=== PATIENT | male | born 1985 | race Caucasian/White ===

== ENCOUNTER 2017-05-18 15:43 | Emergency (ER) | payer SELFPAY ==
[~2017-05-18] VITALS: Ht 185.4 cm; Wt 82.0 kg
[2017-05-18 15:45] VITALS: BP 133/76; PULSE 70; RESP 16; TEMP 98.5; O2SAT 98
--- NOTE | 2017-05-18 15:49 | PD ---
Physical Exam Date Seen by Provider: May 18, 2017 Time Seen by Provider: 15:47 Narrative 31 yo male here of voluntary psych eval. here for evaluation of depression and anxiety. No suicidal. Been under a lot of stress. Not sleeping. Mind racing. No drugs. Vitals are stable in triage. Awaiting bed placement. Data Data Last Documented VS Vital Signs Date Time Temp Pulse Resp B/P Pulse Ox O2 Delivery O2 Flow Rate FiO2 05/18/17 15:45 98.5 70 16 133/76 98 MDM Medical Record Reviewed: Yes Supervised Visit with DERICK: Dave Stallworth May 18, 2017 15:49
[2017-05-18 16:08] VITALS: BP 120/84; PULSE 76; RESP 18; O2SAT 100
--- NOTE | 2017-05-18 16:47 | PD ---
HPI Chief Complaint: Psychiatric Symptoms Time Seen by Provider: 16:25 Travel History International Travel<30 days: No Contact w/Intl Traveler<30days: No Traveled to known affect area: No History of Present Illness HPI 31-year-old male presents voluntarily requesting psychiatric evaluation. For the past several months the patient has been having thoughts of depression, anxiety, anhedonia, insomnia. Symptoms have been building up for some time. Today he was quite agitated at home, slamming doors, generally feeling angry and family members advised that he come here for evaluation. He denies any suicidal or homicidal ideation, alcohol abuse, auditory or visual hallucination. He endorses occasional marijuana use. No other complaints. [facility] Social History Tobacco Use: Yes Substance Use: Yes Allergies-Medications (Allergen,Severity, Reaction): Coded Allergies: No Known Allergies (Unverified , 05/18/17) Reported Meds & Prescriptions Reported Meds & Active Scripts Active No Active Prescriptions or Reported Medications Review of Systems Except as stated in HPI: all other systems reviewed are Neg Physical Exam Narrative GENERAL: Well-developed well-nourished male in no acute distress SKIN: Warm and dry. HEAD: Atraumatic. Normocephalic. EYES: Pupils equal and round. No scleral icterus. No injection or drainage. ENT: No nasal bleeding or discharge. Mucous membranes pink and moist. NECK: Trachea midline. No JVD. CARDIOVASCULAR: Regular rate and rhythm. No murmur appreciated. RESPIRATORY: No accessory muscle use. Clear to auscultation. Breath sounds equal bilaterally. GASTROINTESTINAL: Abdomen soft, non-tender, nondistended. Hepatic and splenic margins not palpable. MUSCULOSKELETAL: No obvious deformities. No clubbing. No cyanosis. No edema. NEUROLOGICAL: Awake and alert. No obvious cranial nerve deficits. Motor grossly within normal limits. Normal speech. PSYCHIATRIC: Appropriate mood and affect; insight and judgment normal. Data Data Last Documented VS Vital Signs Date Time Temp Pulse Resp B/P Pulse Ox O2 Delivery O2 Flow Rate FiO2 05/18/17 16:08 76 18 120/84 100 Room Air 05/18/17 15:45 98.5 Orders Complete Blood Count With Diff (05/18/17 16:03) Comprehensive Metabolic Panel (05/18/17 16:03) Psych Screen (05/18/17 16:03) Drug Screen, Random Urine (05/18/17 16:03) Alcohol (Ethanol) (05/18/17 16:03) Labs Laboratory Tests Test 05/18/17 17:00 White Blood Count 6.1 TH/MM3 Red Blood Count 4.53 MIL/MM3 Hemoglobin 13.9 GM/DL Hematocrit 41.8 % Mean Corpuscular Volume 92.3 FL Mean Corpuscular Hemoglobin 30.7 PG Mean Corpuscular Hemoglobin 33.3 % Concent Red Cell Distribution Width 13.6 % Platelet Count 266 TH/MM3 Mean Platelet Volume 7.5 FL Neutrophils (%) (Auto) 61.2 % Lymphocytes (%) (Auto) 26.8 % Monocytes (%) (Auto) 8.1 % Eosinophils (%) (Auto) 3.5 % Basophils (%) (Auto) 0.4 % Neutrophils # (Auto) 3.7 TH/MM3 Lymphocytes # (Auto) 1.6 TH/MM3 Monocytes # (Auto) 0.5 TH/MM3 Eosinophils # (Auto) 0.2 TH/MM3 Basophils # (Auto) 0.0 TH/MM3 CBC Comment DIFF FINAL Differential Comment Sodium Level 138 MEQ/L Potassium Level 3.9 MEQ/L Chloride Level 104 MEQ/L Carbon Dioxide Level 27.7 MEQ/L Anion Gap 6 MEQ/L Blood Urea Nitrogen 16 MG/DL Creatinine 1.11 MG/DL Estimat Glomerular Filtration 77 ML/MIN Rate Random Glucose 84 MG/DL Calcium Level 8.5 MG/DL Total Bilirubin 0.7 MG/DL Aspartate Amino Transf 20 U/L (AST/SGOT) Alanine Aminotransferase 25 U/L (ALT/SGPT) Alkaline Phosphatase 86 U/L Total Protein 7.0 GM/DL Albumin 3.8 GM/DL Ethyl Alcohol Level LESS THAN 3 MG/DL [facility] Medical Decision Making Medical Screen Exam Complete: Yes Emergency Medical Condition: Yes Medical Record Reviewed: Yes Differential Diagnosis Major depressive disorder, depressive disorder not otherwise specified, acute psychosis, substance induced mood disorder, insomnia Narrative Course 31-year-old male presents voluntarily for psychiatric evaluation. Mental health screening discussed with the patient. Psychiatric screen ordered. Lab work has been reviewed. The patient is medically cleared for psychiatric disposition. Diagnosis Primary Impression: Medical clearance for psychiatric admission Scripts No Active Prescriptions or Reported Meds Leonel Mercado May 18, 2017 16:47
[2017-05-18 17:38] LABS: AUTOMATED NEUTROPHIL # 3.7 TH/MM3 (1.8-7.7); BASOPHIL % 0.4 % (0.0-2.0); EOSINOPHIL # 0.2 TH/MM3 (0-0.4); EOSINOPHIL % 3.5 % (0.0-4.0); HEMATOCRIT 41.8 % (39.0-51.0); HEMO FLAGS DIFF FINAL; LYMPH % 26.8 % (9.0-44.0); LYMPHOCYTE # 1.6 TH/MM3 (1.0-4.8); MEAN CELL VOLUME 92.3 FL (80.0-100.0); MEAN CORPUSCULAR HEMOGLOBIN 30.7 PG (27.0-34.0); MEAN CORPUSCULAR HGB CONC 33.3 % (32.0-36.0); MONO % 8.1 % (0.0-8.0); NEUT % 61.2 % (16.0-70.0); PLATELET COUNT 266 TH/MM3 (150-450); RED BLOOD COUNT 4.53 MIL/MM3 (4.50-5.90); RED CELL DISTRIBUTION WIDTH 13.6 % (11.6-17.2); WHITE BLOOD COUNT 6.1 TH/MM3 (4.0-11.0)
[2017-05-18 17:57] LABS: ANION GAP 6 MEQ/L (5-15); AST (GOT) 20 U/L (15-37); BICARBONATE 27.7 MEQ/L (21.0-32.0); BLOOD UREA NITROGEN 16 MG/DL (7-18); CHLORIDE 104 MEQ/L (98-107); GLOMERULAR FILTRATION RATE 77 ML/MIN (>89); POTASSIUM 3.9 MEQ/L (3.5-5.1); SODIUM (NA) 138 MEQ/L (136-145)
[2017-05-18 17:58] LABS: ALT (GPT) 25 U/L (12-78)
[2017-05-18 18:00] LABS: ALKALINE PHOSPHATASE 86 U/L (45-117); TOTAL BILIRUBIN ADULT 0.7 MG/DL (0.2-1.0)
[2017-05-18 18:05] LABS: AMPHETAMINE, URINE POS (NEG); BARBITURATES, URINE NEG (NEG); COCAINE, URINE NEG (NEG)
== END 2017-05-18 18:42 | disposition home or self-care (01) ==
LOC: NEPJ 15:43
DX: F32.9 Major depressive disorder, single episode, unspecified (principal); F41.9 Anxiety disorder, unspecified; R45.84 Anhedonia; G47.00 Insomnia, unspecified; Z72.0 Tobacco use
CPT/HCPCS: 80053; 80307; 85025; 99283

== ENCOUNTER 2017-05-21 20:53 | Emergency (ER) | payer OTHER ==
[2017-05-21 20:59] VITALS: BP 137/83; PULSE 92; RESP 18; TEMP 98
--- NOTE | 2017-05-21 21:44 | PD ---
HPI Chief Complaint: Psychiatric Symptoms Time Seen by Provider: 21:11 Travel History International Travel<30 days: No Contact w/Intl Traveler<30days: No Traveled to known affect area: No History of Present Illness HPI The patient is a 32-year-old male who presents to the emergency department via [place] [employer] as a Gonzalez act. According to the police affidavit the patient was waving a knife around for right knee kill himself and his parents. The patient advised he was having a bad week, just had a birthday and recently broke up with his girlfriend. He is feeling overwhelmed and cannot make anyone happy. They stated the patient advised she was upset and was stabbing things in the garage. Therefore, the patient was placed under a Gonzalez act. The patient states he was released from shelter last year, has not been feeling well for the last several months and has been depressed. He states he has difficulty sleeping and does not take pleasure and simple routines. He does note occasional illicit drug use with methamphetamines and occasional alcohol use. He denies any suicidal ideation or homicidal ideation tonight. He denies any hallucinations or delusions. [facility] Past Medical History Anxiety: Yes Past Surgical History Appendectomy: Yes Social History Alcohol Use: Yes Tobacco Use: Yes Substance Use: Yes Allergies-Medications (Allergen,Severity, Reaction): Coded Allergies: No Known Allergies (Unverified , 05/21/17) Reported Meds & Prescriptions Reported Meds & Active Scripts Active No Active Prescriptions or Reported Medications Review of Systems Except as stated in HPI: all other systems reviewed are Neg Psychiatric: Positive: Depression, Substance Abuse, No: Suicidal Ideations, Homicidal Ideation Physical Exam Narrative GENERAL: Awake, alert, pleasant 32-year-old male who appears his stated age and is in no acute respiratory distress. SKIN: Focused skin assessment warm/dry. HEAD: Atraumatic. Normocephalic. EYES: Pupils equal and round. No scleral icterus. No injection or drainage. ENT: No nasal bleeding or discharge. Mucous membranes pink and moist. NECK: Trachea midline. No JVD. CARDIOVASCULAR: Regular rate and rhythm. No murmur appreciated. RESPIRATORY: No accessory muscle use. Clear to auscultation. Breath sounds equal bilaterally. MUSCULOSKELETAL: No obvious deformities. No clubbing. No cyanosis. No edema. NEUROLOGICAL: Awake and alert. No obvious cranial nerve deficits. Motor grossly within normal limits. Normal speech. Nonfocal. Oriented 4. PSYCHIATRIC: Flat affect. Data Data Last Documented VS Vital Signs Date Time Temp Pulse Resp B/P Pulse Ox O2 Delivery O2 Flow Rate FiO2 05/21/17 20:59 98.0 92 18 137/83 Orders Psych Screen (05/21/17 21:07) Drug Screen, Random Urine (05/21/17 21:07) Labs Laboratory Tests Test 05/21/17 21:25 Urine Opiates Screen NEG Urine Barbiturates Screen NEG Urine Amphetamines Screen NEG Urine Benzodiazepines Screen NEG Urine Cocaine Screen NEG Urine Cannabinoids Screen [facility] Medical Decision Making Medical Screen Exam Complete: Yes Emergency Medical Condition: Yes Medical Record Reviewed: Yes Interpretation(s) Laboratory Tests Test 05/21/17 21:25 Urine Opiates Screen NEG Urine Barbiturates Screen NEG Urine Amphetamines Screen NEG Urine Benzodiazepines Screen NEG Urine Cocaine Screen NEG Urine Cannabinoids Screen POS Differential Diagnosis Differential diagnosis includes Gonzalez act, depressive disorder NOS, just very ashen, stress reaction, substance induced mood disorder, bipolar affective disorder. Narrative Course I reviewed the patient's labs from May 18, they're unremarkable. No need for new laboratory evaluation. Psychiatric evaluation was ordered. Disposition as per psych. Diagnosis Primary Impression: Medical clearance for psychiatric admission Scripts No Active Prescriptions or Reported Meds Condition: Stable Tristen Armendariz MD May 21, 2017 21:44
[2017-05-21 22:08] LABS: AMPHETAMINE, URINE NEG (NEG); BARBITURATES, URINE NEG (NEG); COCAINE, URINE NEG (NEG)
[2017-05-21 23:31] VITALS: BP 129/63; PULSE 75; RESP 20; O2SAT 99
[2017-05-22 02:27] VITALS: BP 121/70; PULSE 66; RESP 18
[2017-05-22 06:09] VITALS: BP 115/62; PULSE 52; RESP 16
[2017-05-22 10:08] VITALS: BP 115/62; PULSE 52; RESP 16
--- NOTE | 2017-05-22 13:53 | PD ---
History of Present Illness Chief Complaint: Psychiatric Symptoms Time Seen by Provider: 09:45 Travel History International Travel<30 Days: No Contact w/Intl Traveler<30days: No Known affected area: No Legal Status Legal Status: Gonzalez Act Gonzalez Act Signed By: David Valladares History of Present Illness: History of Present Illness HPI The patient is a 32-year-old male with no previous psychiatric history who presents to the emergency department via [place] [employer] under a Gonzalez act. According to the police affidavit " Maxim was waving a knife around threatening to kill himself and his parents. He did not harm himself or anyone else. The patient was seen on April 21 on a voluntary basis as it was reported he was being aggressive at home. At the time the patient with positive toxicology for amphetamines. He was discharged with instructions to follow up with [facility] . He did not follow up with them as he was instructed " because it was my birthday". Patient was monitored in J pod. He did not present any suicidality or behavioral concerns. Staff have obtained collateral information from his mother and she had no concerns if he were to be discharged. Patient is seen in J pod. he is awake, alert and oriented. His speech is clear and logical. There is no indication that he is experiencing any hallucinations and does not appear paranoid. He denies both. He denies feeling agitated and appears calm. He denies any suicidal or homicidal ideation. When questioned regarding events leading up to being placed under a BA he states " I was having a bad day and I was feeling overwhelmed. He admits to reports that he was waving a knife around and states " i was just getting rid of some frustration and I was stabbing the waste basket. He minimizes his use of substances and the negative effects of such substances. He is requesting discharge at this time. [facility] Past Medical History Anxiety: Yes Past Surgical History Appendectomy: Yes Psychiatric History Psychiatric History Hx Psychiatric Treatment: No previous. History of Inpatient Treatment: No Guns or firearms in home: No Social History Single male. Lives with his parents. Unemployed x 1 year. Hx Alcohol Use: Yes Hx Tobacco Use: Yes Hx Substance Use: Yes Substance Use Type: Alcohol, Marijuana, Amphetamines-Stimulants, Nicotine/ Cigarettes Other Substances Used: occasionally-1 ppd Hx of Substance Use Treatment: No Family Psychiatric History Negative Allergies-Medications (Allergen,Severity, Reaction): Coded Allergies: No Known Allergies (Unverified , 05/21/17) Reported Meds & Prescriptions Reported Meds & Active Scripts Active No Active Prescriptions or Reported Medications Review of Systems Except as stated in HPI: all other systems reviewed are Neg Exam Alert: Yes [place]: Person (ox4) Mood: Calm Affect: Appropriate Speech: Clear, Logical Eye Contact: Normal Memory Intact: Comment (No impairmetn) Hallucinations: Other (Negative) Delusions: No Suicidal: Ideation (Denies) Homicidal: Ideation (Denies) Insight/Judgement Poor. Not impaired. MDM Medical Decision Making Medical Record Reviewed: Yes Assessment/Plan The patient is a 32-year-old male with no previous psychiatric history who presents to the emergency department via [place] [employer] under a Gonzalez act. According to the police affidavit " Ravi was waving a knife around threatening to kill himself and his parents. Patient positive for cannabinoids. he denies any intent of harming himself or of harming anyone else. he admits to feeling overwhelmed and frustrated. He minimizes his use of substances. He is cognitively intact. he is requesting discharge and at this time does not meet criteria for BA. He will be discharged. he is counseled regarding use of substances. He is again referred to [facility] for follow up and treatment. Orders Psych Screen (05/21/17 21:07) Drug Screen, Random Urine (05/21/17 21:07) Diet Regular Basic (05/22/17 Breakfast) Results Vital Signs Date Time Temp Pulse Resp B/P Pulse Ox O2 Delivery O2 Flow Rate FiO2 05/22/17 10:08 52 16 115/62 Room Air 05/22/17 06:09 52 16 115/62 05/22/17 02:27 66 18 121/70 Room Air 05/21/17 23:31 75 20 129/63 99 Room Air 05/21/17 20:59 98.0 92 18 137/83 Laboratory Tests Test 05/21/17 21:25 Urine Opiates Screen NEG Urine Barbiturates Screen NEG Urine Amphetamines Screen NEG Urine Benzodiazepines Screen NEG Urine Cocaine Screen NEG Urine Cannabinoids Screen POS Diagnosis Primary Impression: Substance induced mood disorder Additional Impressions: Adjustment disorder with mixed disturbance of emotions and con... Medical clearance for psychiatric admission Psychiatrically Cleared: Yes Referrals: [facility] (Out patient) as needed [facility] as needed Mental Health and Substance Abuse Departure Forms: Tests/Procedures Patient Instructions: General Instructions, Mood Disorders (ED), Medical Clearance for Psychiatric Care (ED) Additional Instructions: DX: Adjustment Disorder with mixed disturbance of Emotions and Conduct Please return to ED if symptoms worsen Prescriptions No Active Prescriptions or Reported Meds Disposition: 01 DISCHARGE HOME Condition: Stable Problem Qualifiers Emma Prabhakar May 22, 2017 13:53
== END 2017-05-22 11:07 | disposition home or self-care (01) ==
LOC: NEPD 20:53 → NEPJ 05-22 11:07
DX: F43.25 Adjustment disorder with mixed disturbance of emotions and conduct (principal); Z72.0 Tobacco use
CPT/HCPCS: 80307; 99284